=== PATIENT | female | born 1950 ===

== ENCOUNTER 2016-12-14 17:06 | Inpatient (IN) | payer MEDICARE ==
[~2016-12-14] VITALS: Ht 147.3 cm; Wt 69.8 kg
--- NOTE | ~2016-12-14 | HEMODYNAMI ---
PATIENT:HILARIA CARNEY MEDICAL RECORD: [id number] : 46 [id number] ADMISSION DATE: 12/15/16 Generatedon:12/20/201612:37 Patient name: HILARIA CARNEY Patient #: [id number] : 1950 Date of study: 12/20/2016 Page: Of Hemodynamic Procedure Report Patient Data Patient Demographics Procedure consent was obtained First Name: HILARIA Gender: Female Last Name: ROMMEL : 1950 Patient #: [id number] Age: 65 year(s) Race: SSN: [id number] Additional ID: [id number] Contact details Address: [address] [place] [address] State: [place] City: [place] Zip code: [address] Past Medical History Allergies: No known allergies Admission Admission Data Admission Date: 12/15/2016 Admission Time: 15:51 Arrival Date: 12/20/2016 Arrival Time: 0:00 Admit Source: Emergency Insurance Payor: Medicare department Room #: D.2119 Lab Results Lab Result Date: 12/20/2016 Lab Result Time: 0:00 Biochemistry Name Units Result Min Max BUN mg/dl 44 --(----)-* 7 18 Creatinine mg/dl 2.9 --(----)-* 0.6 1.3 CBC Name Units Result Min Max Hemoglobin g/dl 9.4 *-(----)-- 13.5 17.5 Procedure Procedure Types Cath Procedure PCI Procedure Coronary Stent Initial Procedure Description Procedure Date Procedure Date: 12/20/2016 Procedure Start Time: 12:26 Procedure End Time: 12:33 Procedure Staff Name Function Tigre Monge MD Performing Physician Mary Lord RN Nurse Kimmy Santos RT Monitor Felicia Holman RT Scrub Tyrese Saldaña RT Special Class Welder Procedure Data Cath Procedure Fluoroscopy Diagnostic fluoroscopy Total fluoroscopy Time: 2 time: 2 min min Diagnostic fluoroscopy Total fluoroscopy dose: dose: 124.37 mGy 124.37 mGy Contrast Material Contrast Material Type Amount (ml) Isovue 370 36 Entry Location Entry Primary Successful Side Size Upsize Upsize Entry Closure Succes sful Closure Location (Fr) 1 (Fr) 2 (Fr) Remarks Device Remarks Femoral Left 6 Fr Vascade artery Short Closure System Estimated blood loss: 5 ml Procedure Complications No complications Procedure Medications Medication Administration Route Dosage Oxygen 2 l/min Heparin Flush Bag added to field 2 bags (1000units/500ml NS) Lidocaine 2% added to field 20 Versed I.V. 1 mg Fentanyl I.V. 50 mcg Heparin Bolus I.V. 4000 units Versed I.V. 0.5 mg Fentanyl I.V. 25 mcg Hemodynamics Rest HGB: 9.4 (g/dl) Heart Rate: 57 (bpm) Snapshots Pre Cath Intra NCS Post Cath Vital Signs Time Heart Resp SPO2 NIBP (mmHg) Rhythm Pain Sedation Rate (ipm) (%) Status Level (bpm) 12:09:39 82 20 96 177/91(142) NSR 0 (11) 10(A) , No pain 12:14:11 77 15 95 175/84(140) NSR 0 (11) 10(A) , No pain 12:18:40 76 16 96 163/75(115) NSR 0 (11) 10(A) , No pain 12:23:06 75 16 97 157/73(115) NSR 0 (11) 10(A) , No pain 12:27:32 58 15 94 144/67(121) NSR 0 (11) 9(A) , No pain 12:32:31 63 19 98 Measuring NSR 0 (11) 9(A) , No pain 12:32:39 61 16 98 152/72(127) NSR 0 (11) 9(A) , No pain 12:34:40 60 22 99 145/67(122) NSR 0 (11) 9(A) , No pain Medications Time Medication Route Dose Verified Delivered Reason Notes Effectiveness by by 12:11:44 Oxygen 2 Tigre Mary Per physician l/min Mariposa Lord RN 12:11:50 Heparin Flush added 2 Tigre Landeros used for Bag to bags Mariposa Monge MD procedure (1000units/500ml field NS) 12:11:58 Lidocaine 2% added 20ml Tigre Landeros used for to vial Mariposa Monge MD procedure field 12:22:50 Versed I.V. 1 mg Tigre Mary for sedation Mariposa Lord RN 12:22:56 Fentanyl I.V. 50 Tigre Mary for sedation mcg Mariposa Lord RN 12:25:14 Versed I.V. 0.5 Tigre Mary for sedation mg Mariposa Lord RN 12:25:26 Fentanyl I.V. 25 Tigre Mary for sedation mcg Mariposa Lord RN 12:26:05 Heparin Bolus I.V. 4000 Tigre Nevarezca for dose units Mariposa Lord RN anticoagulation verified wt dr monge Procedure Log Time Note 11:24:40 Diagnostic Cath Status : Elective 11::29 Time tracking: Regular hours 11:25:33 Plan of Care:Hemodynamics will remain stable., Cardiac rhythm will remain stable., Comfort level will be maintained., Respiratory function will remain adequate., Patient/ family verbilizes understanding of procedure., Procedure tolerated without complication., Recovers from procedure without complications.. 11:28:45 Informed consent obtained and on chart 11:28:57 Arrival Date: 12/20/2016 12:00:00 AM 11:29:06 Insurance Payor : Medicare 11:55:43 Tyrese AMANDA(R) sent for patient. Start room use. 12:08:13 Vital chart was started 12:09:37 Patient received from PCU to CCL 3 Alert and oriented. Tansferred to table in Supine position. 12:09:38 Warm blankets applied, and talha hugger turned on for patient comfort. 12:09:38 Correct patient and procedure confirmed by team. 12:09:39 ECG and BP/O2 sat monitors applied to patient. 12:09:40 Full Disclosure recording started 12:10:55 H&P Date Dictated: 12/20/2016 Within 30 days and on chart.. 12:10:57 Pre-procedure instructions explained to patient. 12:10:57 Pre-op teaching completed and patient verbalized understanding. 12:10:59 Family in waiting room. 12:11:01 Patient NPO since Midnight. 12:11:06 Is the patient allergic to Iodine/contrast media? No. 12:11:08 Was the patient premedicated? No 12:11:08 Is patient on blood thinner?Yes 12:11:11 ACC The patient was administered the following blood thiners within the last 24 hours: ACCPlavix 12:11:26 Patient diabetic? No. 12:11:34 Previous problem with sedation/anesthesia? No ? 12:11:36 Snore? Yes 12:11:37 Sleep apnea? No 12:11:38 Deviated septum? No 12:11:39 Opens mouth fully? Yes 12:11:40 Sticks out tongue? Yes 12:11:42 Airway obstruction? No ? 12:11:44 Oxygen 2 l/min was given by Mary Lord RN; Per physician; 12:11:45 Dentures? No ? 12:11:50 Heparin Flush Bag (1000units/500ml NS) 2 bags added to field was given by Tigre Monge MD; used for procedure; 12:11:53 Pre procedure: right dorsailis pedis pulse 1+ Palpable, but thready & weak; easily obliterated 12:11:56 Patient pain scale 0/10 ?. 12:11:58 Lidocaine 2% 20ml vial added to field was given by Tigre Monge MD; used for procedure; 12:12:08 IV patent on arrival in left forearm with 0.9% NaCl at [facility]. 12:14:53 Lab Result : BUN 44 mg/dl 12:14:53 Lab Result : Creatinine 2.9 mg/dl 12:14:53 Lab Result : Hemoglobin 9.4 g/dl 12:15:03 Lab results completed and on chart. 12:15:07 Left groin area was prepped with chlora-prep and draped in sterile fashion 12:15:08 Alarms reviewed by R. N. 12:15:09 Sharps counted by scrub and verified by R.N. 12:19:34 Physician paged 12:21:34 Physician arrived 12:21:34 --------ALL STOP TIME OUT------ 12:21:35 Final Timeout: patient, procedure, and site verified with staff and physician. All members of the team are in agreement. 12:21:37 Left groin site verified by team. 12:21:41 Physical assessment completed. ASA score P 2 - A patient with mild systemic disease as per Tigre Monge MD. 12::45 Sedation plan: IV Moderate Sedation Versed, Fentanyl 12::50 Versed 1 mg I.V. was given by Mary Lord RN; for sedation; 12::56 Fentanyl 50 mcg I.V. was given by Mary Lord RN; for sedation; 12:23:02 Use device set Femoral PCI 12:23:04 Acist Syringe opened to sterile field. 12:23:04 Acist Hand Control opened to sterile field. 12::04 Bag Decanter opened to sterile field. 12:23:05 Cardinal Cath Pack opened to sterile field. 12:23:06 Terumo 6Fr [place] Sheath opened to sterile field. 12:23:06 St Carrington 260cm J .035 wire opened to sterile field. 12:23:07 Merit BasixCompak Inflation Kit opened to sterile field. 12:23:07 Acist Manifold opened to sterile field. 12:23:08 Tegaderm 4 x 4 opened to sterile field. 12:23:12 Procedure started. 12:23:29 Wilson Whisper J 300cm 0.014 guide wire opened to sterile field. 12:24:31 Cordis 6FR XBLAD 3.5 guide catheter opened to sterile field. 12:24:40 Baseline sample Acquired. 12:25:04 Wilson Fielder XT J 300cm 0.014 guide wire opened to sterile field. 12:25:14 Versed 0.5 mg I.V. was given by Mary Lord RN; for sedation; 12::26 Fentanyl 25 mcg I.V. was given by Mary Lord RN; for sedation; 12::05 Heparin Bolus 4000 units I.V. was given by Mary Lord RN; for anticoagulation; dose verified wt dr monge 12:26:33 Local anesthetic to left femerol artery with Lidocaine 2% by Tigre Monge MD.INITIAL ACCESS ONLY 12::40 A 6 Fr Short sheath was inserted into the Left Femoral artery 12::50 6 Fr xblad 3.5 guide catheter was inserted over the wire 12::55 er wire advanced. 12:27:18 Wire advanced across lesion. 12:28:02 Inflation number: 1 A Euphora 1.5 x 20 Balloon was prepped and advanced across the Mid CX, then inflated to 21 LENNIE for 0:10 (min:sec). 12:28:10 Balloon removed over the wire. 12:29:53 Inflation Number: 2 A Medtronic Integrity 2.25 X 22 stent was prepped and advanced across the Mid CX. The stent was deployed at 17 LENNIE for 0:10 (min:sec). 12:31:16 Stent catheter was removed intact over wire. 12:31:17 Wire removed. 12:31:18 Guide catheter removed. 12:32:01 Sheath removed intact; hemostasis achieved with Vascade Closure System to the Left Femoral artery. 12:32:03 Procedure ended.(Physican Out) 12:32:46 Fluoroscopy time 02.00 minutes. 12:32:54 Fluoroscopy dose: 124.37 mGy 12:32:54 Flurop Dose total: 124.37 12:33:06 Contrast amount:Isovue 370 36ml. 12:33:09 Sharps counted by scrub and verified by R.N. 12:33:10 Insertion/operative site no bleeding no hematoma. 12:33:15 Post-op/insertion site Left Femoral artery dressed using a 4 x 4 and Tegaderm. 12:33:19 Post left femerol artery:stable 12:33:20 Post Procedure Pulses reassessed and unchanged 12:33:22 Post procedure rhythm: unchanged. 12:33:25 Estimated blood loss: 5 ml 12:33:27 Post procedure instruction explained to patient.Patient verbalizes understanding. 12:33:28 Patient needs reinforcement of post procedure teaching. 12:33:33 Procedure and supply charges have been captured, reviewed, submitted and are correct. 12:33:38 Procedure Complication : No complications 12:33:39 Vital chart was stopped 12:33:40 See physician's report for complete and final results. 12:33:44 Report given to Post Procedure Room. 12:33:48 Patient transfered to Post Procedure Room with Stretcher. 12:33:50 Procedure ended. 12:33:50 Full Disclosure recording stopped 12:33:57 ACC-PCI Only Patient was given prescriptions, or instructed by Tigre Monge MD to start/continue the following medications upon discharge: Plavix 12:33:59 End room use (Document Last) 12:36:32 Vascade 6/7 Fr Closure Device opened to sterile field. Intervention Summary Intervention Notes Time ActionType Lesion and Equipment Action# Pressure Duration Attributes Used 12:28:02 Inflate Mid CX Euphora 1 21 00:10 balloon 1.5 x 20 Balloon 12:29:53 Place stent Mid CX Medtronic 2 17 00:10 Integrity 2.25 X 22 stent Device Usage Item Name Manufacture Quantity Catalog Hospital Part Current Minima l Lot# / Number Charge Number Stock Stock Serial# Code Acist Acist 1 [id number] [id number] [id number] [id number] 20 Syringe Medical Systems Inc Acist Hand Acist 1 36853 505104 386579 726819 5 Control Medical Systems Inc Bag Microtek 1 2002S 925327 45302 339140 5 DecActifi Medical Inc. Cardinal Cardinal 1 [id number] 245258 42571 864413 5 Cath Pack Health Terumo 6Fr Terumo 1 [id number] 530997 574121 245958 [address] Carrington 1 [id number] 574463 850717 360944 30 260cm J .035 wire Merit Merit 1 [id number] 430282 627612 685070 15 [employer] Medical Inflation Kit Acist Acist 1 18615 740777 622372 973206 5 Manifold Medical Systems Inc Tegaderm 4 3M 1 1626W 114162 458164 567808 5 x 4 Wilson Wilson 1 [id number] 785247 730770 422951 5 Whisper J Vascular 300cm 0.014 guide wire Cordis 6FR Cardinal 1 [id number] 950031 452214 566923 10 XBLAD 3.5 Health guide catheter Wilson Wilson 1 [id number] 617565 605268 287918 5 Fielder XT Vascular J 300cm 0.014 guide wire Euphora 1.5 Medtronic 1 [id number] 196301 018774 431925 5 [id number] x 20 Balloon Medtronic Medtronic 1 [id number] 382460 245118 985534 4 [id number] Integrity 2.25 X 22 stent Vascade 04/20 Cardiva 1 [id number] 386727 660716 482729 5 Fr Closure Medical, Device Inc. Signature Audit [place] Stage Time Signature Unsigned Intra-Procedure 12/20/2016 Kimmy Santos 12:37:05 PM RT(R) Signatures Monitor : Kimmy Santos RT Signature : Date : Time : [place] [id number] [place] [address]
--- NOTE | ~2016-12-14 | HEMODYNAMI ---
PATIENT:HILARIA CARNEY MEDICAL RECORD: [id number] : 46 [id number] ADMISSION DATE: 12/15/16 Generatedon:12/17/201616:17 Patient name: HILARIA CARNEY Patient #: [id number] SSN: : 1950 Date of study: 12/17/2016 Page: Of Hemodynamic Procedure Report Patient Data Patient Demographics Procedure consent was obtained First Name: HILARIA Gender: Female Last Name: ROMMEL : 1950 Patient #: [id number] Age: 65 year(s) Race: Unknown Additional ID: [id number] Contact details [address]: [address] [place] [address] State: [place] City: [place] Zip code: [address] Past Medical History Allergies: No known allergies Admission Admission Data Admission Date: 12/15/2016 Admission Time: 15:51 Admit Source: Emergency department Room #: D.2119 Lab Results Lab Result Date: 12/17/2016 Lab Result Time: 0:00 Biochemistry Name Units Result Min Max BUN mg/dl 50 --(----)-* 7 18 Creatinine mg/dl 3 --(----)-* 0.6 1.3 CBC Name Units Result Min Max Hemoglobin g/dl 10.5 *-(----)-- 13.5 17.5 Procedure Procedure Types Cath Procedure Diagnostic Procedure [facility] Coronaries only Procedure Description Procedure Date Procedure Date: 12/17/2016 Procedure Start Time: 16:01 Procedure End Time: 16:15 Procedure Staff Name Function Tigre Monge MD Performing Physician Quinten Nelson RT Scrub Abhijeet Bright RN Nurse Saira Stewart RT Monitor Johnathan Simons RT Associate Property Manager Procedure Data Cath Procedure Fluoroscopy Diagnostic fluoroscopy Total fluoroscopy Time: 1.1 time: 1.1 min min Diagnostic fluoroscopy Total fluoroscopy dose: 260 dose: 260 mGy mGy Contrast Material Contrast Material Type Amount (ml) Isovue 300 31 Entry Location Entry Primary Successful Side Size Upsize Upsize Entry Closure Succes sful Closure Location (Fr) 1 (Fr) 2 (Fr) Remarks Device Remarks Femoral Right 5 Fr 6 Fr Vascade artery Short Closure System Estimated blood loss: 10 ml Diagnostic catheters Device Type Used For End Catheter Placement Cordis Infinity 5Fr 3DRC Right Coronary catheter Angiography Cordis Infinity 5Fr JL Left Coronary 4.0 catheter Angiography Procedure Complications No complications Procedure Medications Medication Administration Route Dosage Oxygen NC 2 l/min Lidocaine 2% added to field 20 Heparin Flush Bag added to field 2 bags (1000units/500ml NS) 0.9% NaCl I.V. 100 ml/hr Heparin Bolus I.V. 4000 units Versed I.V. 1 mg Fentanyl I.V. 50 mcg Hemodynamics Rest HGB: 10.5 (g/dl) Heart Rate: 62 (bpm) Snapshots Pre Cath Intra NCS Post Cath Vital Signs Time Heart Resp SPO2 etCO2 WE6jzon NIBP (mmHg) Rhythm Pain Sedation Rate (ipm) (%) (mmHg) (mmHg) Status Level (bpm) 15:52:33 62 17 96 0 0 170/80(138) NSR 0 (11) 10(A) , No pain 15:56:57 60 13 94 0 0 169/74(131) NSR 0 (11) 10(A) , No pain 16:01:17 59 15 93 0 0 155/78(127) NSR 0 (11) 10(A) , No pain 16:05:39 61 15 94 0 0 151/72(119) NSR 0 (11) 9(A) , No pain 16:10:03 64 15 95 0 0 147/76(112) NSR 0 (11) 9(A) , No pain 16:14:28 57 16 96 0 0 151/66(114) NSR 0 (11) 10(A) , No pain Medications Time Medication Route Dose Verified Delivered Reason Notes Effectiveness by by 15:55:06 Oxygen NC 2 Tigre Jha used for l/min Mariposa Bright waiter 15:55:15 Lidocaine 2% added 20ml Tigre Landeros for local to vial Mariposa Monge MD anesthetic field 15:55:22 Heparin Flush added 2 Tigre Landeros used for Bag to bags Mariposa Monge MD procedure (1000units/500ml field NS) 15:55:32 0.9% NaCl I.V. 100 Tigre Buffie Per physician ml/hr Mariposa Bright RN 16:00:47 Versed I.V. 1 mg Tigre Jha for sedation Mariposa Bright RN 16:00:53 Fentanyl I.V. 50 Tigre Jha for sedation mcg Mariposa Bright RN 16:06:34 Heparin Bolus I.V. 4000 Tigre Jha for verifi ed units Mariposa Bright RN anticoagulation with dr monge Procedure Log Time Note 15:40:32 Diagnostic Cath Status : Elective 15:41:11 Johnathan Simons RT(R) sent for patient. Start room use. 15:41:12 Time tracking: Regular hours 15:41:16 Plan of Care:Hemodynamics will remain stable., Cardiac rhythm will remain stable., Comfort level will be maintained., Respiratory function will remain adequate., Patient/ family verbilizes understanding of procedure., Procedure tolerated without complication., Recovers from procedure without complications.. 15:43:25 Patient received from Outpatients to [facility] 2 Alert and oriented. Tansferred to table in Supine position. 15:43:27 Warm blankets applied, and talha hugger turned on for patient comfort. 15:43:27 Correct patient and procedure confirmed by team. 15:43:28 Signed procedure consent form obtained from patient. 15:43:29 ECG and BP/O2 sat monitors applied to patient. 15:43:30 Full Disclosure recording started 15:51:11 Vital chart was started 15:51:15 Rhythm: sinus rhythm 15:52:23 H&P Date Dictated: 12/17/2016 Within 30 days and on chart.. 15:52:25 Pre-procedure instructions explained to patient. 15:52:25 Pre-op teaching completed and patient verbalized understanding. 15:52:27 Family in waiting room. 15:52:28 Patient NPO since Midnight. 15:52:36 Patient allergic to No known allergies 15:52:39 Is the patient allergic to Iodine/contrast media? No. 15:52:55 Is patient on blood thinner?Yes 15:53:12 Patient diabetic? No. 15:53:19 Previous problem with sedation/anesthesia? No ? 15:53:20 Snore? Yes 15:53:22 Sleep apnea? Yes 15:53:23 Deviated septum? No 15:53:24 Opens mouth fully? Yes 15:53:25 Sticks out tongue? Yes 15:53:27 Airway obstruction? No ? 15:53:31 Dentures? No ? 15:53:33 Pre procedure: right dorsailis pedis pulse 2+ Normal; easily identifiable; not easily obliterated 15:53:35 Patient pain scale 0/10 ?. 15:53:41 IV patent on arrival in right hand with 0.9% NaCl at O. 15:54:58 Lab Result : BUN 50 mg/dl 15::58 Lab Result : Creatinine 3 mg/dl 15:54:58 Lab Result : Hemoglobin 10.5 g/dl 15:55:02 Lab results completed and on chart. 15:55:05 Right groin area was prepped with chlora-prep and draped in sterile fashion 15:55:06 Oxygen 2 l/min NC was given by Abhijeet Bright RN; used for procedure; 15:55:06 Alarms reviewed by R. N. 15:55:06 Sharps counted by scrub and verified by R.N. 15:55:11 Use device set Femoral Dx 15:55:12 Bag Decanter opened to sterile field. 15:55:13 Acist Syringe opened to sterile field. 15:55:13 Cardinal Cath Pack opened to sterile field. 15:55:14 Terumo 5Fr [place] Sheath opened to sterile field. 15:55:14 St Carrington 260cm J .035 wire opened to sterile field. 15:55:15 Lidocaine 2% 20ml vial added to field was given by Tigre Monge MD; for local anesthetic; 15:55:19 Acist Hand Control opened to sterile field. 15:55:19 Acist Manifold opened to sterile field. 15:55:21 Tegaderm 4 x 4 opened to sterile field. 15:55:21 IV Extension Set opened to sterile field. 15:55:22 Heparin Flush Bag (1000units/500ml NS) 2 bags added to field was given by Tigre Monge MD; used for procedure; 15:55:32 0.9% NaCl 100 ml/hr I.V. was given by Abhijeet Bright RN; Per physician; 15:56:04 Baseline sample Acquired. 15:56:36 Admit Source: Emergency department 15:57:01 Procedure type changed to Cath procedure, Diagnostic procedure, LHC, Coronaries only 15:57:09 Final Timeout: patient, procedure, and site verified with staff and physician. All members of the team are in agreement. 15:57:11 Right groin site verified by team. 15:57:14 Physical assessment completed. ASA score P 3 - A patient with severe systemic disease as per Tigre Monge MD. 15:57:18 Sedation plan: IV Moderate Sedation Versed, Fentanyl 16:00:47 Versed 1 mg I.V. was given by Abhijeet Bright RN; for sedation; 16:00:53 Fentanyl 50 mcg I.V. was given by Abhijeet Bright RN; for sedation; 16:01:38 Procedure started. 16:01:42 Local anesthetic to right femoral artery with Lidocaine 2% by Tigre Monge MD.INITIAL ACCESS ONLY 16:01:50 A 5 Fr sheath was inserted into the Right Femoral artery 16:02:16 A Cordis Infinity 5Fr JL 4.0 catheter was advanced over the wire and used for Left Coronary Angiography. 16:02:25 Zero performed for pressure channel P1 16:02:31 Zero performed for pressure channel P1 16:04:35 Catheter removed. 16:05:08 Catheter removed. 16:05:33 Sheath upsized to a 6 Fr Short. 16:05:55 Merit BasixCompak Inflation Kit opened to sterile field. 16:05:56 Terumo 6Fr [place] Sheath opened to sterile field. 16:06:34 Heparin Bolus 4000 units I.V. was given by Abhijeet Bright RN; for anticoagulation; verified with dr monge 16:06:42 A Cordis Infinity 5Fr 3DRC catheter was advanced over the wire and used for Right Coronary Angiography. 16:06:42 6 Fr 3DRC guide catheter was inserted over the wire 16:06:51 Medtronic Launcher 6Fr 3DRC guide catheter opened to sterile field. 16:07:12 [place] Sci Choice PT Extra Support J 300cm .014 gu opened to sterile field. 16:07:51 Whisper wire advanced. 16:08:56 Inflation Number: 1 A Medtronic Integrity 3.5 X 12 stent was prepped and advanced across the Prox RCA. The stent was deployed at 13 LENNIE for 0:08 (min:sec). 16:09:20 Stent catheter was removed intact over wire. 16:09:21 Wire removed. 16:09:21 Guide catheter removed. 16:09:31 Sheath removed intact; hemostasis achieved with Vascade Closure System to the Right Femoral artery. 16:09:38 Vascade 6/7 Fr Closure Device opened to sterile field. 16:09:41 Procedure ended.(Physican Out) 16:11:04 Fluoroscopy time 01.10 minutes. 16:11:08 Flurop Dose total: 260 16:11:08 Fluoroscopy dose: 260 mGy 16:11:15 Contrast amount:Isovue 300 31ml. 16:11:17 Sharps counted by scrub and verified by R.N. 16:11:20 Insertion/operative site no bleeding no hematoma. 16:11:30 Post-op/insertion site Right Femoral artery dressed using a 4 x 4 and Tegaderm. 16:11:33 Post right femoral artery:stable, clean and dry 16:11:48 Post Procedure Pulses reassessed and unchanged 16:12:06 Post-procedure physical assessment completed. ASA score P 3 - A patient with severe systemic disease as per Tigre Monge MD. 16:12:09 Post procedure rhythm: unchanged. 16:12:11 Estimated blood loss: 10 ml 16:12:12 Post procedure instruction explained to patient.Patient verbalizes understanding. 16:12:13 Patient needs reinforcement of post procedure teaching. 16:12:17 Procedure Complication : No complications 16:12:19 See physician's report for complete and final results. 16:14:37 Procedure and supply charges have been captured, reviewed, submitted and are correct. 16:14:37 Vital chart was stopped 16:14:39 Report given to PCU. 16:14:55 Patient transfered to PCU with Bed. 16:15:01 Procedure ended. 16:15:01 Full Disclosure recording stopped 16:15:24 End room use (Document Last) Intervention Summary Intervention Notes Time ActionType Lesion and Equipment Action# Pressure Duration Attributes Used 16:08:56 Place stent Prox RCA Medtronic 1 13 00:09 Integrity 3.5 X 12 stent Device Usage Item Name Manufacture Quantity Catalog Number Hospital Part Current Minim al Lot# / Charge Number Stock Stock Serial# Code Bag Microtek 1 2001S [id number] 45137 037892 5 [employer] Inc. Acist Acist 1 67571 331745 248777 953815 20 Hyperformix Medical Systems Inc Cardinal Cardinal [address] 764332 56935 712228 5 Cath Pack Health Terumo 5Fr Terumo 1 [id number] 943477 274680 487084 [address] Carrington 1 553775 891077 300945 974676 30 260cm J .035 wire Acist Hand Acist 1 19826 808261 592019 018394 5 Control Medical Systems Inc Acist Acist 1 85201 385154 343686 702442 5 Manifold Medical Systems Inc Tegaderm 4 3M 1 1626W 733680 342144 840796 5 x 4 IV Hospira 1 73661-33 599821 25589 173655 5 Extension Set Merit Merit 1 [id number] 830589 824910 321665 15 PercSys Medical Inflation Kit Terumo 6Fr Terumo 1 [id number] 027901 922095 367895 40 [place] Sheath Medtronic Medtronic 1 [id number] 799038 906217 793210 1 Launcher 6Fr 3DRC guide catheter Orleans Sci [place] 1 [id number] 198678 609233 593874 5 Choice PT Scientific Extra Support J 300cm .014 gu Medtronic Medtronic 1 [id number] 174765 335062 678714 3 [id number] Integrity 3.5 X 12 stent Vascade 6/7 Cardiva 1 [id number] 754438 724043 492966 5 Fr Closure Medical, Device Inc. Cordis Cardinal 1 [id number] 519530 484163 124054 9 Perficientity Health 5Fr 3DRC catheter Cordis Cardinal 1 [id number] 907804 286471 690085 10 Ringthree Technologies Health 5Fr JL 4.0 catheter Signature Audit Stafford Stage Time Signature Unsigned Intra-Procedure 12/17/2016 Saira 4:17:44 PM Counts RT(R) Signatures Monitor : Saira Signature : Counts RT Date : Time : [facility] [address] [place] [address]
[2016-12-14 17:08] VITALS: BP 189/82
[2016-12-14] MEDS ORDERED: FUROSEMIDE40 MG PO (17:16)
[2016-12-14] MEDS ORDERED: NORVASC10 MG PO (17:17)
[2016-12-14 17:19] VITALS: BP 189/82; BMI 31.0
[2016-12-14 19:00] VITALS: BP 146/60
[2016-12-15] VITALS: BP 131/49
[2016-12-15 04:00] VITALS: BP 127/48
[2016-12-15 06:44] LABS: ANION GAP 13.3 mmol/L (8-16); CALCIUM 7.6 mg/dL (8.5-10.1); CARBON DIOXIDE 20.6 mmol/L (21.0-32.0); CREATININE - SERUM 2.9 mg/dL (0.6-1.3); POTASSIUM - SERUM 4.9 mmol/L (3.5-5.1)
[2016-12-15 08:00] VITALS: BP 166/63
--- NOTE | 2016-12-15 09:24 | NUR ---
TELEMETRY SR. IV PATENT. DAUGHTER AT BS. WILL CONT. PLAN OF CARE.
--- NOTE | 2016-12-15 11:06 | NUR ---
UP AMBULATING HALLWAY WITH DAUGHTER. GAIT STEADY.
[2016-12-15 11:50] VITALS: BP 153/59
--- NOTE | 2016-12-15 11:58 | NUR ---
PRE-OPS GIVEN. TO CHIEF SECURITY OFFICER BY BED.
--- NOTE | 2016-12-15 13:31 | NUR ---
CONSENT FOR C SIGNED BY DAUGHTER.
[2016-12-15 13:34] VITALS: Ht 147.3 cm; Wt 69.8 kg
[2016-12-15 15:28] VITALS: BP 148/56
--- NOTE | 2016-12-15 19:41 | NUR ---
RESUMED CARE OF PT, LYING IN BED RESPIRATIONS EVEN AND UNLABORED ON 2LPM VIA NC. 71 SR ON TELEMETRY. RIGHT AC IV INFILTRATED, DC'D WITH TIP INTACT. NO NEEDS VOICED AT THIS TIME. WILL CONTINUE TO MONITOR. SEE NURSE ASSESSMENT. CALL LIGHT IN REACH.
[2016-12-15 20:00] VITALS: BP 163/66
--- NOTE | 2016-12-15 22:30 | NUR ---
20 GAUGE TO RIGHT HAND X 2 STICKS. NO NEEDS VOICED AT THIS TIME. WILL CONTINUE TO MONITOR. CALL LIGHT IN REACH.
[2016-12-16] VITALS: BP 157/61
--- NOTE | 2016-12-16 04:19 | NUR ---
LYING IN BED WITH EYES CLOSED, CALL LIGHT IN REACH. WILL CONTINUE WITH PLAN OF CARE.
[2016-12-16 06:04] LABS: BASOPHILS 0.5 % (0.0-2.0); EOSINOPHILS 5.7 % (0-7); HEMATOCRIT 26.1 % (36.0-48.0); HEMOGLOBIN 8.5 g/dL (12-16); IMMATURE GRANULOCYTES 0.5 % (0-5); LYMPHOCYTES 26.8 % (15-50); MCH 28.8 pg (26.0-34.0); MCHC 32.6 g/dL (31.0-37.0); MCV 88.5 fL (80.0-100.0); MEAN PLATELET VOLUME 9.3 fL (7.4-10.4); MONOCYTES 7.3 % (2-11); NEUTROPHILS 59.2 % (40-80); PLATELET COUNT 238 10x3/uL (130-400); RBC 2.95 10x6/uL (4.00-5.40); RDW 14.5 % (11.5-14.5); WBC 7.9 10x3/uL (4.8-10.8)
[2016-12-16 06:36] LABS: ANION GAP 15.8 mmol/L (8-16); CALCIUM 7.5 mg/dL (8.5-10.1); CARBON DIOXIDE 18.4 mmol/L (21.0-32.0); CREATININE - SERUM 3.2 mg/dL (0.6-1.3); POTASSIUM - SERUM 5.2 mmol/L (3.5-5.1)
--- NOTE | 2016-12-16 06:40 | NUR ---
NO CHANGES FROM PREVIOUS ASSESSMENT, CALL LIGHT IN REACH.
[2016-12-16 07:41] VITALS: BP 117/72
--- NOTE | 2016-12-16 09:13 | NUR ---
TELEMETRY SR. IV PATENT. HC CANCELLED. WILL CONT. PLAN OF CARE.
--- NOTE | 2016-12-16 11:30 | NUR ---
UP AMBULATING HALLWAY WITH DAUGHTER.
--- NOTE | 2016-12-16 11:57 | NUR ---
1ST UNIT PRBC STARTED. VS WNL. LINE IS PATENT.
[2016-12-16 12:05] VITALS: BP 158/61
--- NOTE | 2016-12-16 14:15 | NUR ---
1ST UNIT BLOOD COMPLETED WITHOUT ADVERSE REACTIONS NOTED.
--- NOTE | 2016-12-16 14:52 | NUR ---
2ND UNIT BLOOD STARTED. VS WNL. LINE IS PATENT.
[2016-12-16 16:05] VITALS: BP 148/73
--- NOTE | 2016-12-16 16:42 | NUR ---
Patient Name: HILARIA CARNEY Admission Status: Urgent Accout number: [id number] Admission Date: 12-15-2016 : 1950 Admission Diagnosis:NON-ST ELEVATION (NSTEMI) MYOCARDIAL INFARCTION Attending: WYATT Current LOS: 1 Anticipated DC Date: Planned Disposition: Home Primary Insurance: MEDICARE A & B Discharge Planning Comments: * Is the patient Alert and Oriented? Yes 0 * How many steps to enter\exit or inside your home? 5 0 * PCP DR. CAI IN [place] (AYAUSH QUIJANO, RABIA) 0 * Pharmacy [facility] IN [place] 0 * Preadmission Environment Home with Family 0 * ADLs Independent 0 * Equipment CPAP Glucometer 0 * Other Equipment txtr - [facility] [employer] MEDICAL EQUIPMENT PROVIDER 0 * List name and contact numbers for known caregivers / representatives who currently or will assist patient after discharge: ROWDY HOOVER, 0 * Community resources currently utilized None 0 * Please name any agencies selected above. NONE 0 * Additional services required to return to the preadmission environment? No 0 * Can the patient safely return to the preadmission environment? Yes 0 * Has this patient been hospitalized within the prior 30 days at any hospital? No 0 CM MET WITH PT AND DAUGHTER IN ROOM TO DISCUSS DISCHARGE PLANNING AND NEEDS. PT SPEAKS LITTLE HUNGARIAN, MOLDOVAN IS HER KING SALMON LANGUAGE. PT REPORTS LIVING AT HOME INDEPENDENTLY WITH HER ADULT DAUGHTER. PT HAS GLUCOMETER AND CPAP FROM [employer] [facility] [facility]. PT HAS NO OUTSIDE SERVICES ASSISTING IN THE HOME. CM DISCUSSED AVAILABILITY OF HOME HEALTH, REHAB SERVICES AND MEDICAL EQUIPMENT. PT DENIES DISCHARGE NEEDS, REPORTS HER DAUGHTER WILL PICK HER UP FOR DISCHARGE HOME. IMPORTANT MESSAGE FROM MEDICARE PROVIDED AND EXPLAINED IN MOLDOVAN REQUESTED BY PT WHO REPORTS BEING ABLE TO READ MOLDOVAN. PT PLANS TO DISCHARGE HOME WITH FAMILY, NO ANTICIPATED DISCHARGE NEEDS. CM TO FOLLOW AND ASSIST NEEDED. Project/Production Manager Imaging: Rahul Barbosa
[2016-12-16 20:00] VITALS: BP 103/54
--- NOTE | 2016-12-16 20:29 | NUR ---
RESUMED CARE OF PT, LYING IN BED RESPIRATIONS EVEN AND UNLABORED ON 2LPM VIA NC. 67 SR ON TELEMETRY. RIGHT WRIST INFUSING SODIUM BICARB @ 75. NO NEEDS VOICED AT THIS TIME. WILL CONTINUE TO MONITOR. SEE NURSE ASSESSMENT.
[2016-12-17] VITALS: BP 148/52
--- NOTE | 2016-12-17 02:08 | NUR ---
LYING IN BED WITH EYES CLOSED, CALL LIGHT IN REACH. WILL CONTINUE WITH PLAN OF CARE.
[2016-12-17 04:00] VITALS: BP 177/71
[2016-12-17 05:56] LABS: BASOPHILS 0.4 % (0.0-2.0); EOSINOPHILS 7.4 % (0-7); IMMATURE GRANULOCYTES 0.5 % (0-5); LYMPHOCYTES 25.9 % (15-50); MCH 28.2 pg (26.0-34.0); MCHC 32.5 g/dL (31.0-37.0); MCV 86.6 fL (80.0-100.0); MEAN PLATELET VOLUME 9.4 fL (7.4-10.4); MONOCYTES 7.9 % (2-11); NEUTROPHILS 57.9 % (40-80); PLATELET COUNT 263 10x3/uL (130-400); RDW 15.4 % (11.5-14.5); WBC 7.6 10x3/uL (4.8-10.8)
[2016-12-17 06:01] LABS: HEMATOCRIT 32.3 % (36.0-48.0); HEMOGLOBIN 10.5 g/dL (12-16); RBC 3.73 10x6/uL (4.00-5.40)
[2016-12-17 06:18] LABS: ANION GAP 14.5 mmol/L (8-16); CALCIUM 7.3 mg/dL (8.5-10.1); CARBON DIOXIDE 21.5 mmol/L (21.0-32.0)
--- NOTE | 2016-12-17 06:40 | NUR ---
NO CHANGES FROM PREVIOUS ASSESSMENT, NO NEEDS VOICED AT THIS TIME. WILL CONTINUE TO MONITOR.
--- NOTE | 2016-12-17 07:21 | NUR ---
RECEIVED REPORT AT THIS TIME. WILL CONTINUE PLAN OF CARE NO OTHER NEEDS AT THIS TIME. WILL CONTINUE TO [facility].
[2016-12-17 08:06] VITALS: BP 181/77
--- NOTE | 2016-12-17 10:03 | NUR ---
PT IS ALERT. PT HAS HAD COMPLETE BED BATH TODAY ASSESSMENT DONE PER FLOWSHEET. NO OTHER NEEDS AT THIS TIME. WILL CONTINUE TO [facility]
--- NOTE | 2016-12-17 11:12 | HP ---
PATIENT: HILARIA CARNEY MEDICAL RECORD: [id number] ACCOUNT: [id number] LOCATION:[facility] D.2119 : [birth year] ADMISSION DATE: 12/15/16 HISTORY AND PHYSICAL EXAMINATION DIAGNOSES: 1. Non-Q-wave myocardial infarction. 2. Coronary artery disease. 3. Pneumonia. 4. Renal insufficiency. 5. Hypertension. 6. Hyperlipidemia. HISTORY OF PRESENT ILLNESS: Mrs. Carney presents with chest pain, shortness of breath, found to have a pneumonia, found to have a creatinine of 3.2 as well as a troponin that is elevated. Her EKG shows T-wave inversions inferiorly. She has no previous cardiac history. PHYSICAL EXAMINATION: GENERAL APPEARANCE: Well-nourished, well-developed, appears stated age. Level of distress, comfortable. PSYCHIATRIC: Mental status, alert, normal affect. Orientation, oriented to time, place and person. EYES: Lids and conjunctiva, noninjected. No discharge, no pallor. ENT: Lips, teeth, gums, normal dentition. Oropharynx, no cyanosis, no pallor. NECK: Carotid arteries, bilateral normal upstroke, no bruits, no thrills. JUGULAR VEINS: No jugular venous pressure or distention. CERVICAL LYMPH NODES: Nontender, nonenlarged. THYROID: Not enlarged. Nontender. No nodules. LUNGS: Respiratory effort, unlabored. CHEST: Normal curvature. No thoracic deformity. No chest wall tenderness. Percussion, resonant. Auscultation, clear. No wheezes, no rales, no rhonchi. CARDIOVASCULAR: Precordial exam, nondisplaced. No heaves or pericardial thrills. Rate and rhythm, regular. Heart sounds, normal S1, normal S2. No S3, no gallop, no rub. Systolic murmur, not heard. Diastolic murmur, not heard. EXTREMITIES: No cyanosis, no edema. Peripheral pulses, full and equal in all extremities, except as noted. No bruits appreciated. ABDOMEN: Soft, nondistended. Normal aorta. No bruit. Nontender. No masses. Liver, nontender, no hepatomegaly. Spleen, nontender, no splenomegaly. MUSCULOSKELETAL: No joint tenderness. No joint swelling. No erythema. NEUROLOGICAL: Normal gait, normal strength, normal tone. SKIN: Warm and dry. REVIEW OF SYSTEMS: The patient reports easy bruising but reports no swollen glands. The patient reports no fever, no night sweats, no significant weight gain, no significant weight loss. No significant exercise tolerance. The patient reports no dry eyes, no irritation, no vision change. Patient reports no difficulty hearing and no ear pain. Patient reports no frequent nose bleeds or nose and sinus problems. Patient reports on arm pain on exertion. No shortness of breath while lying down. No history of heart murmur. Patient reports no cough, no wheezing or coughing up blood. Patient reports no abdominal pain, no vomiting. Normal appetite. No diarrhea and not vomiting blood. No nausea and no constipation. Patient reports no incontinence. No difficulty urinating. No hematuria. No increased frequency. Patient reports no muscle aches. No weakness, no arthralgias, no back pain. No swelling of the HISTORY AND PHYSICAL [id number] HILARIA CARNEY extremities. Patient reports no abnormal mole, no jaundice, no rashes. Reports no loss of consciousness. No weakness and no numbness. No seizures, dizziness, or headaches. The patient reports no depression, no sleep disturbance, feeling safe in a relationship and no alcohol abuse. Patient reports on fatigue. Reports no runny nose or sinus pressure. No itching, no hives, and no frequent sneezing. OVERALL IMPRESSION: Pneumonia complicated by non-Q-wave myocardial infarction, abnormal ECG. She most likely has hemodynamically significant coronary artery disease. We will treat the pneumonia, hydrate. If her creatinine does not come down, we will have renal consult planned for cardiac catheterization in the near future. TRANSINT:[id number] Voice Confirmation ID: [id number] DOCUMENT ID: [id number] DENNIS MILES MD at 1112 CC: [id number] DICTATION DATE: 12/14/16 1716 MERCERIZING RANGE CONTROLLER: 12/14/16 1843 ADM IN [place] [id number] [place] [address]
[2016-12-17 12:00] VITALS: BP 187/64
[2016-12-17 20:51] VITALS: BP 162/73
[2016-12-18 00:54] VITALS: BP 158/70
[2016-12-18 04:03] VITALS: BP 156/66
[2016-12-18 05:19] LABS: BASOPHILS 0.6 % (0.0-2.0); EOSINOPHILS 6.9 % (0-7); HEMATOCRIT 32.2 % (36.0-48.0); HEMOGLOBIN 10.4 g/dL (12-16); IMMATURE GRANULOCYTES 0.5 % (0-5); LYMPHOCYTES 23.3 % (15-50); MCH 28.3 pg (26.0-34.0); MCHC 32.3 g/dL (31.0-37.0); MCV 87.5 fL (80.0-100.0); MEAN PLATELET VOLUME 10.1 fL (7.4-10.4); NEUTROPHILS 60.7 % (40-80); PLATELET COUNT 286 10x3/uL (130-400); RBC 3.68 10x6/uL (4.00-5.40); RDW 15.4 % (11.5-14.5); WBC 8.4 10x3/uL (4.8-10.8)
[2016-12-18 05:35] LABS: % SATURATION 17 % (15-55); IRON 40 ug/dl (35-150); TOTAL IRON BIND CAPACITY 224 ug/dl (260-445); UNSAT IRON BIND CAPACITY 184 ug/dl (150-375)
[2016-12-18 05:45] LABS: ANION GAP 14.3 mmol/L (8-16); CALCIUM 7.3 mg/dL (8.5-10.1); CARBON DIOXIDE 21.3 mmol/L (21.0-32.0); CREATININE - SERUM 2.9 mg/dL (0.6-1.3); POTASSIUM - SERUM 4.6 mmol/L (3.5-5.1)
[2016-12-18 07:35] VITALS: BP 138/72
--- NOTE | 2016-12-18 09:45 | NUR ---
TELEMETRY SR. UP AMBULATING HALLWAY WITH DAUGHTER. GAIT STEADY. WILL CONT. PLAN OF CARE.
[2016-12-18 11:19] VITALS: BP 163/58
[2016-12-18 15:09] VITALS: BP 121/64
--- NOTE | 2016-12-18 19:42 | NUR ---
INITIAL ROUNDS COMPLETED AT 1910 HRS. PT DENIED ANY DISCOMFORT. ASSESSMENT COMPLETED AT 1930 HRS. SR PER CM HR 69. O2 2LNC. IV TO R WRIST SL. LUNGS DIMINISHED IN BASES BILAT. MORRIS. BRUISE NOTED TO INNER LAC AREA AND R GROIN. R GROIN CLEAN AND DRY. PALPABEL PEDAL PULSES. PT SPEAKS MINIMAL CENTRAL AFRICAN. FAMILY HERE TO TRANSLATE. PT DENIES ANY DISCOMFORT. WILL CONTINUE TO MONITOR. SR UP X2, CALL LIGHT WITHIN REACH.
[2016-12-18 21:17] VITALS: BP 116/56
--- NOTE | 2016-12-19 00:27 | NUR ---
PT AWAKE; DENIES ANY DISCOMFORT. WILL CONITNUE TO MONITOR.
[2016-12-19 02:01] VITALS: BP 164/60
--- NOTE | 2016-12-19 02:33 | NUR ---
PT RESTING WITH EYES CLOSED. RESP EVEN AND REGULAR. SR UP X2, CALL LIGHT WITHIN REACH. FAMILY AT BEDSIDE.
[2016-12-19 04:25] VITALS: BP 154/59
--- NOTE | 2016-12-19 05:21 | NUR ---
PT AWAKE;DENIES ANY DISCOMFORT. WILL CONTINUE TO MONITOR.
--- NOTE | 2016-12-19 06:16 | NUR ---
VSS THROUGHOUT NIGHT. SR PER CM. PT DENIED ANY DISCOMFORT. NEEDS MET; WILL CONTINUE TO MONITOR.
[2016-12-19 07:28] VITALS: BP 174/74
[2016-12-19 11:57] VITALS: BP 156/64
--- NOTE | 2016-12-19 13:06 | NUR ---
CONSENTS SIGNED FOR [facility]. WILL CONT. PLAN OF CARE.
[2016-12-19 15:10] VITALS: BP 151/62
--- NOTE | 2016-12-19 19:25 | NUR ---
INITIAL ORUNDS COMPLETEED. PT DENIES ANY DISCOMFORT. FAMILY AT BEDSIDE TO TRANSLATE. STR PER CM HR 68. WILL CONTINUE TO MONITOR. SR UP X2, CALL LIGHT WITHIN REACH.
[2016-12-19 20:00] VITALS: BP 178/68
--- NOTE | 2016-12-19 21:16 | NUR ---
PT AMBULATING HALLS WITH FAMILY. GAIT EVEN AND STEADY. WILL CONTIUE TO MONITOR.
[2016-12-20] VITALS: BP 163/64
--- NOTE | 2016-12-20 00:51 | NUR ---
SR PER CM HR 78. PT RESTING WITH EYES CLOSED. RESP EVEN AND REGULAR. SR UP X2, CALL LIGHT WITHIN REACH.
--- NOTE | 2016-12-20 02:10 | NUR ---
NS AT 50CC/HR TO R WRIST INITIATED PER ORDERS. PT DENIED ANY DISCOMFORT. WILL CONTINUE TO MONITOR.
[2016-12-20 04:00] VITALS: BP 121/67
--- NOTE | 2016-12-20 04:52 | NUR ---
PT RESTING WITH EYES CLOSED. RESP EVEN AND REGULAR. SR UP X2,CALL LIGHT WITHIN REACH.
--- NOTE | 2016-12-20 06:27 | NUR ---
VSS THROUGHOUT NIGHT. SR PER CM. PT DENIED ANY DISCOMFORT. NEEDS MET; WILL CONTINUE TO MONITOR.
--- NOTE | 2016-12-20 07:30 | NUR ---
RECEIVED PT IN BED AAOX3 RESP UNLABORED DENIES ANY NEEDS OR DISCOMFORT AT THIS TIME FAMILY AT BEDSIDE
[2016-12-20 08:00] VITALS: BP 167/63
[2016-12-20 11:45] LABS: BASOPHILS 0.7 % (0.0-2.0); EOSINOPHILS 6.3 % (0-7); HEMATOCRIT 29.1 % (36.0-48.0); HEMOGLOBIN 9.4 g/dL (12-16); IMMATURE GRANULOCYTES 0.5 % (0-5); LYMPHOCYTES 20.6 % (15-50); MCH 28.3 pg (26.0-34.0); MCHC 32.3 g/dL (31.0-37.0); MCV 87.7 fL (80.0-100.0); MEAN PLATELET VOLUME 9.4 fL (7.4-10.4); MONOCYTES 7.3 % (2-11); NEUTROPHILS 64.6 % (40-80); PLATELET COUNT 276 10x3/uL (130-400); RBC 3.32 10x6/uL (4.00-5.40); RDW 14.7 % (11.5-14.5); WBC 10.3 10x3/uL (4.8-10.8)
[2016-12-20 11:49] LABS: CALCIUM 7.7 mg/dL (8.5-10.1); CARBON DIOXIDE 20.1 mmol/L (21.0-32.0); CREATININE - SERUM 2.9 mg/dL (0.6-1.3); POTASSIUM - SERUM 5.1 mmol/L (3.5-5.1)
[2016-12-20 12:00] VITALS: BP 162/54
[2016-12-20] MEDS ORDERED: TENORMIN50 MG PO (13:47)
[2016-12-20] MEDS ORDERED: PRAVACHOL20 MG PO (13:50)
[2016-12-20] MEDS ORDERED: AUGMENTIN 500-11 TA1 PO (13:51)
[2016-12-20] MEDS ORDERED: PLAVIX75 MG PO (13:52)
[2016-12-20] MEDS ORDERED: ASPIRIN81 MG PO (13:52)
--- NOTE | 2016-12-20 14:08 | NUR ---
Patient Name: HILARIA CARNEY Encounter No: [id number] : 1950 Primary Insurance: MEDICARE A & B Anticipated DC Date: 12-20-2016 Planned Disposition: Home DCP follow-up note: CM MET WITH PT AND DAUGHTER IN ROOM TO DISCUSS DISCHARGE NEEDS AND PLANNING. CM DISCUSSED AVAILABILITY OF HOME HEALTH, REHAB SERVICES AND MEDICAL EQUIPMENT. PT'S DAUGHTER DENIES DISCHARGE NEEDS, DAUGHTER TO TRANSPORT HOME AT DISCHARGE. IMPORTANT MESSAGE FROM MEDICARE PROVIDED IN [place] AND EXPLAINED. Rahul Barbosa, CASE MANAGEMENT
[2016-12-20 16:00] VITALS: BP 184/74
--- NOTE | 2016-12-20 18:00 | NUR ---
SITED SALINE LOCK TO LT WRIST WITH 22 GA IV CATH X1 STICK USING ASEPTIC TECHNIQUE SATHISH TOLERATED WELL
[2016-12-20 20:03] VITALS: BP 182/64
--- NOTE | 2016-12-20 23:10 | NUR ---
REPORT RECIEVED, INITIAL ASSESSMENT COMPLETE, PLEASE SEE FLOW SHEETS FOR DETAILS. FAMILY AT BEDSIDE INTERPRETOR. PT DENIES PAIN/NEEDS AT THIS TIME, INCISION SITE INSECTED, DENIES PAIN AT SITE, SCANT AMOUNT OF BLOOD NOTED ON 4X4 UNDER TEGADERM, WILL MONITOR THIS CLOSELY. PT DUE FOR DISCHARGE AFTER BREAKFAST IN MORNING. NO S&S OF ACUTE DISTRESS, WILL CONTINUE TO MONITOR.
--- NOTE | 2016-12-20 23:58 | NUR ---
PERIPHERAL PULSES CHECKED AND PALPABLE AND STRONG. WILL CONTINUE TO MONITOR.
--- NOTE | 2016-12-21 01:00 | NUR ---
PT SLEEPING, NO S&S OF ACUTE DISTRESS NOTED. RR EVEN AND UNLABORED. VSS ATT, WILL CONTINUE TO MONITOR.
[2016-12-21 01:37] VITALS: BP 173/66
--- NOTE | 2016-12-21 04:00 | NUR ---
PERIPHERAL PULSES CHECKED AND PALPABLE. DENIES PAIN/NEEDS AT THIS TIME, WILL CONTINUE TO MONITOR.
[2016-12-21 04:19] VITALS: BP 150/60
[2016-12-21 06:00] LABS: BASOPHILS 0.6 % (0.0-2.0); EOSINOPHILS 7.3 % (0-7); HEMATOCRIT 29.1 % (36.0-48.0); HEMOGLOBIN 9.4 g/dL (12-16); IMMATURE GRANULOCYTES 0.6 % (0-5); LYMPHOCYTES 17.9 % (15-50); MCH 28.7 pg (26.0-34.0); MCHC 32.3 g/dL (31.0-37.0); MCV 88.7 fL (80.0-100.0); MEAN PLATELET VOLUME 9.6 fL (7.4-10.4); MONOCYTES 8.4 % (2-11); NEUTROPHILS 65.2 % (40-80); PLATELET COUNT 284 10x3/uL (130-400); RBC 3.28 10x6/uL (4.00-5.40); RDW 14.5 % (11.5-14.5); WBC 9.9 10x3/uL (4.8-10.8)
[2016-12-21 06:27] LABS: ANION GAP 17.4 mmol/L (8-16); CALCIUM 7.7 mg/dL (8.5-10.1); CREATININE - SERUM 2.8 mg/dL (0.6-1.3); POTASSIUM - SERUM 5.4 mmol/L (3.5-5.1)
[2016-12-21 07:45] VITALS: BP 165/59
--- NOTE | 2016-12-21 07:45 | NUR ---
AWAKE SITTING IN CHAIR. IV DC WITH TIP INTACT. MONITOR SHOWS SINUS@ 74.
--- NOTE | 2016-12-21 08:31 | NUR ---
DISCHARGE INSTRUCTIONS GIVEN TO PATIENT AND FAMILY. BOTH VERBALIZE UNDERSTANDING.
--- NOTE | 2016-12-21 09:12 | NUR ---
FINISHED BREAKFAST AND AM MEDS . READY FOR DC. TO [facility] .
--- NOTE | 2016-12-23 13:59 | DS ---
PATIENT:HILARIA CARNEY :46 MEDICAL RECORD: [id number] DISCHARGE SUMMARY ADMISSION DATE: 12/15/16 DISCHARGE DATE: 12/21/16 DIAGNOSES: 1. Non-Q-wave myocardial infarction. 2. Coronary artery disease. 3. Percutaneous transluminal coronary angioplasty stent, right coronary artery and left circumflex, this admission. 4. Pneumonia. 5. Renal insufficiency. 6. Hypertension. HOSPITAL COURSE: Ms. Carney presents with a non-Q-wave myocardial infarction as well as pneumonia. Pneumonia was treated with IV changed over to p.o. antibiotics. She underwent cardiac catheterization revealing critical disease of the RCA and left circumflex, underwent successful PTCA stent of above territories, had an uneventful postop course with followup with [facility] in 1 month with the addition of atenolol, Pravachol, aspirin and Plavix to her medical regimen. TRANSINT:[id number] Voice Confirmation ID: [id number] DOCUMENT ID: [id number] DENNIS MILES MD at 1359 CC: [id number] DICTATION DATE: 12/20/16 1240 FUNERAL GREETER: 12/20/16 1509 DIS IN 12/21/16 [place] [id number] [place] [id number]
--- NOTE | 2016-12-23 13:59 | OP ---
PATIENT NAME: HILARIA CARNEY MEDICAL RECORD: [id number] :46 LOCATION:D.M2 D.2119 ADMISSION DATE:12/15/16 SURGEON: DENNIS MILES MD DATE OF OPERATION: 12/17/2016 PROCEDURES: 1. PTCA stent RCA. 2. Left heart catheterization. 3. Selective coronary angiography. INDICATION: Non-Q-wave myocardial infarction. PROCEDURE IN DETAIL: After informed consent was obtained and after detailed explanation of risks, benefits as well as alternative therapies, the patient elected to proceed with angiogram and angioplasty. The right femoral area was prepped and draped in the normal sterile fashion. The right femoral artery was cannulated via modified Seldinger technique with placement of 6-Cambodian sheath. All catheters exchanged through this sheath. FINDINGS: The left ventriculogram was not performed due to dye conservation and renal insufficiency. SELECTIVE CORONARY ANGIOGRAPHY: 1. Left main showed no significant angiographic disease. 2. Left anterior descending has moderate irregularities, but no flow-limiting stenosis. 3. Left circumflex has a 99% stenosis in the mid vessel. 4. Right coronary has a 99% stenosis with ulcerative plaque in the proximal vessel. PTCA STENT OF THE RIGHT CORONARY: Stent used a 3.0 x 12 mm Integrity. Result was 0% residual stenosis. OVERALL IMPRESSION: Successful percutaneous transluminal coronary angioplasty stent of the right coronary artery going from ulcerative plaque with greater than 95% initial stenosis to 0% residual. PLAN: PTCA stent of the left circumflex in the near future. TRANSINT:[id number] Voice Confirmation ID: [id number] DOCUMENT ID: [id number] DENNIS MILES MD at 1359 CC: [id number] DICTATION DATE: 12/17/16 1613 DIRECTOR OF CURRICULUM: 12/17/16 2232 DIS IN 12/21/16 [place] [id number]
--- NOTE | 2016-12-23 13:59 | OP ---
PATIENT NAME: HILARIA CARNEY MEDICAL RECORD: [id number] :46 LOCATION:D.M2 D.2119 ADMISSION DATE:12/15/16 SURGEON: DENNIS MILES MD DATE OF OPERATION: 12/20/2016 PROCEDURES: 1. PTCA stent, left circumflex. 2. Selective coronary angiography. INDICATION: Non-Q-wave myocardial infarction. PROCEDURE IN DETAIL: After informed consent was obtained and after detailed explanation of risks, benefits as well as alternative therapies, the patient elected to proceed with angiogram and angioplasty. The left femoral area was prepped and draped in normal sterile fashion. Left femoral artery was cannulated via modified Seldinger technique with placement of 6-Polish sheath. All catheters exchanged through this sheath. FINDINGS: The left circumflex had a 99% stenosis, the mid vessel was addressed with a 2.25 x 22 mm Integrity stent taken to 19 atmospheres. Result was 0% residual stenosis. OVERALL IMPRESSION: Successful percutaneous transluminal coronary angioplasty stent of the left circumflex going from 99% initial stenosis to 0% residual. TRANSINT:[id number] Voice Confirmation ID: [id number] DOCUMENT ID: [id number] DENNIS MILES MD at 1359 CC: [id number] DICTATION DATE: 12/20/16 1241 HIGH DENSITY PRESS OPERATOR: 12/20/16 1433 DIS IN 12/21/16 [place] [id number] [place] [address]
== END 2016-12-21 09:14 | disposition home or self-care (01) | DRG 248 ==
LOC: D.M2 17:06 → OBSVTIME 17:06 → D.M2 12-15 15:51
PROVIDERS: Internal Medicine Nephrology; ADMIT Internal Medicine Interventional Cardiology
PROC: 4A023N7 Measurement of Cardiac Sampling and Pressure, Left Heart, Percutaneous Approach (ICD-10-PCS; 2016-12-17)
PROC: B2111ZZ Fluoroscopy of Multiple Coronary Arteries using Low Osmolar Contrast (ICD-10-PCS; 2016-12-17)
PROC: B2151ZZ Fluoroscopy of Left Heart using Low Osmolar Contrast (ICD-10-PCS; 2016-12-17)
PROC: 02703DZ Dilation of Coronary Artery, One Artery with Intraluminal Device, Percutaneous Approach (ICD-10-PCS; principal; 2016-12-17 07:00)
PROC: 02703DZ Dilation of Coronary Artery, One Artery with Intraluminal Device, Percutaneous Approach (ICD-10-PCS; 2016-12-20)
DX: I21.4 Non-ST elevation (NSTEMI) myocardial infarction (principal); J18.9 Pneumonia, unspecified organism; N18.4 Chronic kidney disease, stage 4 (severe); N17.9 Acute kidney failure, unspecified; E87.2 Acidosis; I25.10 Atherosclerotic heart disease of native coronary artery without angina pectoris; E78.5 Hyperlipidemia, unspecified; E11.22 Type 2 diabetes mellitus with diabetic chronic kidney disease; I12.9 Hypertensive chronic kidney disease with stage 1 through stage 4 chronic kidney disease, or unspecified chronic kidney disease; E11.21 Type 2 diabetes mellitus with diabetic nephropathy; E87.5 Hyperkalemia; D63.1 Anemia in chronic kidney disease